=== PATIENT | female | born 2000 | race Caucasian/White ===

== ENCOUNTER 2021-06-22 10:25 | Emergency (ER) | payer BC, SELFPAY ==
--- NOTE | ~2021-06-22 | CT_ITS ---
EXAMINATION: CT facial & cervical spine wo EXAM DATE: 06/22/2021 11:56 INDICATION: head injury, neck pain, jaw pain . TECHNIQUE: Spiral CT of the facial bones was acquired in the axial plane. Coronal reformatted images were also reviewed. Spiral CT of the cervical spine was performed without contrast. Axial images we re reviewed. Coronal and sagittal reformatted images were also reviewed. The dose-length product (DL P) for this examination was 140.16 mGy-cm. The exposure was tailored according to patient size, and iterative reconstruction (ASIR) was used as additional dose reduction technique. There is no prior s tudy for comparison. FINDINGS: FACIAL CT: There are no displaced acute nasal bone fractures. The mandible, sinuses and orbits are i ntact. The orbits, globes and extraocular muscles are unremarkable. The visualized sinuses and ma stoid air cells are well aerated. Moderate rightward nasal septal deviation. CERVICAL CT: There is no evidence of acute cervical fracture. The odontoid process is intact. Pre-d ens space is normal. Prevertebral soft tissue is normal. There are no soft tissue abnormalities andres ntified. There is no disc space widening or traumatic vertebral body subluxation suspected. Vertebr al body and disc heights are well-maintained. IMPRESSION: 1. No acute facial or cervical fracture. Reviewed, dictated and finalized at location A.
--- NOTE | ~2021-06-22 | CT_ITS ---
EXAMINATION: CT brain wo con EXAM DATE: 06/22/2021 11:56 INDICATION: Head injury, fell. Head and neck fascial and back pain. TECHNIQUE: Spiral CT of the head was performed without contrast. Axial, coronal and sagittal images were reviewed. The dose-length product (DLP) for this examination was 605.33 mGy-cm. The exposure w as tailored according to patient size, and iterative reconstruction (ASIR) was used as additional dos e reduction technique. There is no prior study for comparison. FINDINGS: There is no acute intraparenchymal hemorrhage. No evidence of intraparenchymal brain mass lesion. No evidence of acute infarction. There is no mass effect or midline shift. The ventricles are normal in size. There are no extra-axial collections. There are no acute calvarial fractures. T he orbits are unremarkable. Soft tissue is unremarkable. The visualized sinuses and mastoid air poli ls are well aerated. IMPRESSION: 1. No acute intracranial findings. Reviewed, dictated and finalized at location A.
--- NOTE | ~2021-06-22 | CT_ITS ---
EXAMINATION: CT lumbar spine brooks [facility]ays EXAM DATE: 06/22/2021 11:56 INDICATION: low back pain, fall from height. TECHNIQUE: Spiral CT lumbar spine was performed without contrast. Axial, coronal and sagittal images of the lumbar spine were reviewed. The dose-length product (DLP) for this examination was 190.54 mGy- cm. The exposure was tailored according to patient size (auto mA exposure control), and iterative re construction (ASIR) was used as additional dose reduction technique. There is no prior study for michael lorenzo. FINDINGS: Sacroiliac joints unremarkable. There is no evidence of acute lumbar fracture. There is no disc spac e widening or traumatic vertebral body subluxation suspected. Paraspinal soft tissue is unremarkable . Vertebral body and disc heights are well-maintained. Mild lower lumbar disc bulges, with mild ce ntral canal, neural foraminal stenosis at L4-5. A detailed level by level evaluation of spondylosis can be added as addendum if requested. IMPRESSION: 1. No acute lumbar findings. Reviewed, dictated and finalized at location A.
[2021-06-22 10:33] VITALS: BP 130/76; PULSE 63; RESP 14; TEMP 36.4; O2SAT 100
--- NOTE | 2021-06-22 10:36 | PC.NURSE ---
patient placed in c-collar due to patient reporting neck and back pain after fall.
--- NOTE | 2021-06-22 11:15 | ED.HEATRA ---
HPI - Head Injury General Chief complaint: Head Injury Stated complaint: Fall, Head/neck pain Time Seen by Provider: 06/22/21 10:39 Source: patient and family Mode of arrival: ambulatory Limitations: no limitations History of Present Illness HPI Narrative: This is a 21-year-old female that presents to the emergency department for head injury sustained around 3 this morning. Reports she has a loft bed. She was reaching down to grab something and accidentally fell out of it. Reports she landed on her head. Reports since she has had jaw pain, neck pain, headache, and low back pain. Her father thought that she was having trouble getting words out this morning. Denies vision changes, vomiting, numbness or weakness. Related Data Home Medications Medication Instructions Recorded Confirmed escitalopram oxalate 06/22/21 hydroxyzine HCl 06/22/21 norgestimate-ethinyl estradiol tablet 06/22/21 [Sprintec (28)] Allergies Allergy/AdvReac Type Severity Reaction Status Date / Time No Known Allergies Allergy Verified 06/22/21 10:32 Review of Systems Review of Systems: CONSTITUTIONAL: Denies fever EYES: Denies visual changes GASTROINTESTINAL: Denies vomiting MUSCULOSKELETAL: Reports back pain, joint pain, and myalgia. NEUROLOGIC: Reports headache. Denies numbness, or weakness. All systems reviewed & are unremarkable except as noted in HPI and below PMFSH Past Medical History Medical History (Updated 06/22/21 @ 12:44 by Acacia Alvarado PA-C) History of depression Social History Social History (Updated 06/22/21 @ 11:18 by Acacia Alvarado PA-C) Smoking status: Never smoker Exam Narrative: GENERAL: Well-appearing, well-nourished, and in no acute distress. HEAD: Normocephalic. Superficial abrasion below the lower lip EYES: PERRLA and EOMI. ENT: Nares clear, no rhinorrhea or epistaxis. Mucous membranes moist. Oropharynx without tonsillar hypertrophy exudate or other lesions. Bilateral TMs pearly thomas non-bulging NECK: Supple. No adenopathy or masses. Tender to palpation of midline cervical spine CHEST: Clear to auscultation. No respiratory distress. No wheezes rales or rhonchi HEART: Regular rate and rhythm. No murmur heard. Normal peripheral pulses. BACK: No midline thoracic spine tenderness. Tender palpation of midline lumbar spine EXTREMITIES: Normal range of motion. No edema. Strength equal in bilateral upper and lower extremities (5/5) SKIN: Warm, dry, no rash. NEURO: No focal deficits. Alert and oriented x3. Cranial nerves II through XII grossly intact PSYCH: Normal mood and affect Course Vital Signs Vital signs: Vital Signs Temperature 97.6 F 06/22/21 10:33 Pulse Rate 63 06/22/21 10:33 Respiratory Rate 14 06/22/21 10:33 Blood Pressure 130/76 06/22/21 10:33 Pulse Oximetry 100 06/22/21 10:33 Temperature 97.6 F 06/22/21 10:33 Pulse Rate 52 L 06/22/21 12:13 Respiratory Rate 12 06/22/21 12:13 Blood Pressure 120/78 06/22/21 12:13 Pulse Oximetry 98 06/22/21 12:13 MDM - Head Injury MDM Narrative Medical decision making narrative: Patient presents to the emergency department for head injury earlier this morning. Reporting headache, neck pain, facial injury, and low back pain. Her vitals are stable. She is neurologically intact. CT scan of the brain was without acute findings. CT scan of the cervical spine and facial bones also without acute findings. CT scan of the lumbar spine is without acute findings. Patient was updated on case findings. She was instructed on care of concussion. She is to follow-up with primary care doctor. She was given warnings to return to the ER Lab Data Attestation: I reviewed the patient's lab results. Labs: UCG Bedside Result Negative Reference Range: Negative Imaging Data Radiologist's impression: ITS Impressions Head CT 06/22/21 11:58 IMPRESSION: 1
[2021-06-22 12:13] VITALS: BP 120/78; PULSE 52; RESP 12; O2SAT 98
[2021-06-22 13:04] VITALS: BP 107/78; PULSE 68; RESP 12; O2SAT 100
== END 2021-06-22 13:05 | disposition home or self-care (01) ==
PROVIDERS: Emergency Provider Emergency Medicine
DX: S06.0X0A Concussion without loss of consciousness, initial encounter (principal); W06.XXXA Fall from bed, initial encounter; S16.1XXA Strain of muscle, fascia and tendon at neck level, initial encounter; F32.A Depression, unspecified
CPT/HCPCS: 70450; 70486; 72125; 72131; 81025; 99284; L0140